=== PATIENT | male | born 1955 | race Caucasian/White ===

== ENCOUNTER 2020-07-23 22:12 | Emergency (ER) | payer MEDICARE ==
[2020-07-23 22:17] VITALS: BP 148/82; PULSE 88; RESP 18; TEMP 98.6
[2020-07-23] MEDS ORDERED: ACET/COD 300 MG/30 MG STARTER PACK 6 TAB BTL PO STA (22:51)
[2020-07-23] MEDS ORDERED: AMOXIC-POT CLAV 875MG STARTER PACK 2 TAB BTL PO STA (22:51)
--- NOTE | 2020-07-23 22:54 | ED ---
ENT HPI - General Chief complaint: Dental/Oral Stated complaint: Dental Pain Time Seen by Provider: 07/23/20 22:27 Source: patient Mode of arrival: ambulatory Limitations: no limitations - History of Present Illness Initial comments: 64-year-old male presented for chief complaint of left lower jaw pain. Patient states that he has multiple bad teeth he states the last tooth that he still has a the left lower aspect of his jaw is tender and has been hurting for past 5 days, today he developed swelling of the left side of face, denies neck swelling. Swelling below the tongue, difficulty breathing or swallowing. Denies DM. Admits to chilld, denies fevers or rash. Denies additional complaints. Patient appears well and nontoxic on arrival he states is a 9:00 appointment with his dentist in the morning. Patient is not currently on any antibiotics. - Related Data Home Medications Medication Instructions Recorded Confirmed Aspirin 81 mg PO DAILY 05/17/14 05/18/14 Atorvastatin [Lipitor] 80 mg PO DAILY 05/17/14 05/18/14 Clopidogrel [Plavix] 75 mg PO DAILY 05/17/14 05/17/14 Enalapril [Vasotec] 5 mg PO DAILY 05/17/14 05/17/14 Ibuprofen [Motrin] 800 mg PO BID 05/17/14 05/17/14 Metoprolol Tartrate [Lopressor] 25 mg PO DAILY 05/17/14 05/17/14 Previous Rx's Medication Instructions Recorded Amoxicillin/Potassium Clav 1 tab PO Q12HR 7 Days #14 tab 07/23/20 [Augmentin 875-125 Tablet] Allergies Allergy/AdvReac Type Severity Reaction Status Date / Time No Known Allergies Allergy Verified 07/23/20 22:17 Review of Systems ROS Statement: Those systems with pertinent positive or pertinent negative responses have been documented in the HPI. ROS Other: All systems not noted in ROS Statement are negative. Past Medical History Past Medical History: GERD/Reflux, Myocardial Infarction (DE), Rheumatoid Arthritis (RA) Additional Past Medical History / Comment(s): gall stones, Hx hypoglycemia Last Myocardial Infarction Date:: 11/11/2013 History of Any Multi-Drug Resistant Organisms: None Reported Past Surgical History: Heart Catheterization With Stent Past Anesthesia/Blood Transfusion Reactions: No Reported Reaction Additional Past Anesthesia/Blood Transfusion Reaction / Comment(s): never had anesthesia Date of Last Stent Placement:: 11/11/2013 Past Psychological History: No Psychological Hx Reported Past Alcohol Use History: None Reported Past Drug Use History: None Reported - Past Family History Mother Family Medical History: Cancer Sister(s) Family Medical History: Cancer Brother(s) Family Medical History: Cancer General Exam - General Exam Comments Initial Comments: General: The patient is awake and alert, in no distress, and does not appear acutely ill. Eye: Pupils are equal, round and reactive to light, extra-ocular movements are intact. No nystagmus. There is normal conjunctiva bilaterally. No signs of icterus. Ears, nose, mouth and throat: There are moist mucous membranes and no oral lesions. Tooth #20 tender to touch, apppear carious, adjacent gingiva induration is not. Fluctuant. No swelling below the tongue or below the angle of the mandible. Uvula midline no stridor no tripoding no drooling Neck: The neck is supple, there is no tenderness or JVD. Musculoskeletal: Normal ROM, no tenderness. Strength 5/5. Sensation intact. Pulses equal bilaterally 2+. Neurological: A&O x 3. CN II-XII intact, There are no obvious motor or sensory deficits. Coordination appears grossly intact. Speech is normal. Skin: Skin is warm and dry and no rashes or lesions are noted. Psychiatric: Cooperative, appropriate mood & affect, normal judgment. Limitations: no limitations Course Vital Signs 07/23/20 22:12 Temperature 98.6 F Pulse Rate 88 Respiratory 18 Rate Blood Pressure 148/82 O2 Sat by Pulse 98 Oximetry Medical Decision Making - Medical Decision Making 64yo male presenting for cc of dental pain. suspect abscess, periapcal suspected. Abx initiated. No signs at this time of ludwigs angina. patient is to f/u tomorrow as scheduled and return if symptoms worsen/develop swelling of neck or below tongue, difficutly brathing or fevers. Patient verbalized understanding and was discharged appearing well. Discussed case with Tasia Thompson Disposition Clinical Impression: Pain, dental, Dental abscess Disposition: HOME SELF-CARE Condition: Good Instructions (If sedation given, give patient instructions): Dental Abscess (ED) Additional Instructions: Please use medication as discussed. Please follow-up with dentist at 9AM tomorrow as scheduled any worsening between now and then please return to the ER immediately. Please return to emergency room if the symptoms increase or worsen or for any other concerns. Prescriptions: Amoxicillin/Potassium Clav [Augmentin 875-125 Tablet] 1 tab PO Q12HR 7 Days #14 tab Is patient prescribed a controlled substance at d/c from ED?: No Referrals: Kristine Su DO [Primary Care Provider] - 1-2 days Time of Disposition: 22:54
== END 2020-07-23 23:14 | disposition home or self-care (01) ==
LOC: EC 22:12
DX: K04.7 Periapical abscess without sinus (principal); I25.2 Old myocardial infarction; M06.9 Rheumatoid arthritis, unspecified; Z79.02 Long term (current) use of antithrombotics/antiplatelets; Z79.82 Long term (current) use of aspirin; Z79.899 Other long term (current) drug therapy; Z95.5 Presence of coronary angioplasty implant and graft
CPT/HCPCS: 99282

== ENCOUNTER 2024-02-08 07:18 | Day surgery (SDC) | payer MEDICARE ==
[2024-02-05 11:13] VITALS: BMI 21.4
[~2024-02-08 07:18] MED LIST: ALPRAZolam 0.25 MG TAB PO PRN; ALPRAZolam 0.5 MG TAB PO PRN; HEPARIN SODIUM,PORCINE (1 ML) 2,500 UNIT in SODIUM CHLORIDE 0.9% 250 ML IRRIGATION PRN; HEPARIN SODIUM,PORCINE 10,000 UNIT in SODIUM CHLORIDE 0.9% 1,000 ML IRRIGATION PRN; NITROGLYCERIN SL TABS 0.4 MG TAB SUBLINGUAL PRN
[2024-02-08] MEDS: ASPIRIN 325 MG TAB PO STA (07:45)
[2024-02-08] MEDS: SODIUM CHLORIDE 0.9% 1,000 ML in EMPTY BAG 1 BAG IV SCH (07:46)
[2024-02-08] MEDS: SODIUM CHLORIDE 0.9% 1,000 ML IV ONE (07:46)
[2024-02-08 08:02] LABS: Basophils # (A) 0.1 k/uL (0-0.2); Basophils % (A) 1 %; Eosinophils # (A) 0.4 k/uL (0-0.7); Eosinophils % (A) 4 %; HCT 49.4 % (39.0-53.0); HGB 16.3 gm/dL (13.0-17.5); Lymphocytes # (A) 2.5 k/uL (1.0-4.8); Lymphocytes % (A) 26 %; MCH 30.3 pg (25.0-35.0); MCHC 33.1 g/dL (31.0-37.0); MCV 91.6 fL (80.0-100.0); Mean Platelet Volume 8.9; Monocytes # (A) 0.4 k/uL (0-1.0); Monocytes % (A) 4 %; Neutrophils # (A) 6.1 k/uL (1.3-7.7); Neutrophils % (A) 63 %; Platelet Count 224 k/uL (150-450); RBC 5.39 m/uL (4.30-5.90); RDW 13.3 % (11.5-15.5); WBC 9.7 k/uL (3.8-10.6)
[2024-02-08 08:13] VITALS: RESP 16; TEMP 98.4
[2024-02-08 08:37] LABS: African American GFR (CKD) >90 (>60 ml/min/1.73 sqM); Anion Gap 9 mmol/L; Blood Urea Nitrogen 16 mg/dL (9-20); Calcium 9.1 mg/dL (8.4-10.2); Carbon Dioxide 22 mmol/L (22-30); Chloride 110 mmol/L (98-107); Glucose 100 mg/dL (74-99); Non-African American GFR(CKD) 90 (>60 ml/min/1.73 sqM); Sodium 141 mmol/L (137-145)
[2024-02-08 08:58] LABS: Potassium 5.1 mmol/L (3.5-5.1)
[2024-02-08] MEDS ORDERED: HEPARIN SODIUM 1,000 UN/ML (10ML VL) ONE (09:56)
[2024-02-08] MEDS ORDERED: VERAPAMIL 2.5 MG/ML 2 ML AMP ONE (09:56)
[2024-02-08] MEDS ORDERED: LIDOCAINE 1% INJ 10MG/ML (20 ML MDV) ONE (09:56)
[2024-02-08] MEDS: MIDAZOLAM 2 MG/2 ML VIAL IVP ONE (10:28)
[2024-02-08] MEDS: LIDOCAINE 1% INJ 10MG/ML (20 ML MDV) SQ ONE (10:28)
[2024-02-08] MEDS: VERAPAMIL SYRINGE (5 MG/10 ML) INTRAARTER ONE (10:29)
[2024-02-08] MEDS ORDERED: fentaNYL (PF) 50 MCG/ML 2 ML AMP ONE (10:32)
[2024-02-08] MEDS: HEPARIN SODIUM 1,000 UN/ML (10ML VL) IV ONE (10:32)
[2024-02-08] MEDS: fentaNYL (PF) 50 MCG/ML 2 ML AMP IVP ONE (10:33)
[2024-02-08] MEDS: IOPAMIDOL-370 100ML BTL INJ ONE (10:37)
[2024-02-08] MEDS ORDERED: RX INFO: IV CONTRAST WAS GIVEN 1 EACH MISC MISCELLANE PRN (10:44)
[2024-02-08] MEDS ORDERED: SODIUM CHLORIDE 0.9% 1,000 ML IV SCH (10:45)
--- NOTE | 2024-02-08 10:48 | P.PCN ---
Date of Procedure: 02/08/24 Operative Findings: CARDIAC CATHETERIZATION PERFORMING PHYSICIAN: Marcus Henry MD, NADEENVI PROCEDURE PERFORMED: 1. Selective right and left coronary angiogram 2. Left heart catheterization 3. Ultrasound-guided access of the right radial artery INDICATION: Chest discomfort in this 68-year-old gentleman who underwent myocardial perfusion imaging and that showed an inferior ischemia and the patient is known to have CAD was prior stenting of the RCA COMPLICATION: None APPROACH: Right radial artery LEVEL OF SEDATION: Moderate with a sedation length of 12 minutes PROCEDURE DESCRIPTION: After obtaining an informed consent, the patient was brought to cardiac labor union business representative. Local anesthesia was performed using lidocaine subcutaneously. The right radial artery was cannulated using Seldinger technique, the guidewire passed easily, following that we advanced a 5-Namibian sheath dilator assembly, the wire and dilator were removed and sheath was flushed. Following that, 2 mg of verapamil along with 3000 unit heparin were given. Selective right and left coronary angiogram using a 6-Namibian JR4 and JL 3.5 catheters. Following that we did left heart catheterization using 6-Namibian JR4. The procedure was completed there was no complication. SELECTIVE CORONARY ANGIOGRAM: The right coronary artery: Large caliber vessel and dominant vessel was patent stent in the mid RCA and mild disease in the proximal RCA Left main: Is angiographically normal The left circumflex: Large caliber vessel nondominant vessel. The circumflex has mild disease only. Gives rises into the first and second obtuse marginal branches and both appeared to be normal The left anterior descending artery: Large caliber vessel was mild disease only. The LAD gives rises into multiple diagonal branches HEMODYNAMICS: The LVEDP was 12-15 mmHg was no significant across the aortic valve CONCLUSION: 1. Patent stent in the mid RCA 2. Normal left-sided filling pressure POSTPROCEDURE MANAGEMENT: Medical treatment CARDIAC CATHETERIZATION PERFORMING PHYSICIAN: Marcus Henry MD, NADEENVI PROCEDURE PERFORMED: 1. Selective right and left coronary angiogram 2. Left heart catheterization 3. Ultrasound-guided access of the right radial artery INDICATION: [] COMPLICATION: None APPROACH: Right radial artery LEVEL OF SEDATION: Moderate with a sedation length of [] minutes PROCEDURE DESCRIPTION: After obtaining an informed consent, the patient was brought to cardiac labor union business representative. Local anesthesia was performed using lidocaine subcutaneously. The right radial artery was cannulated using micropuncture technique under ultrasound guidance and the micropuncture wire passed easily then placed a 6-Namibian sheath over the wire. Subsequently the sheath was flushed and secured. Following that, 2 mg of verapamil along with 5000 unit heparin were given. Selective right and left coronary angiogram using a 6-Namibian JR4 and JL 3.5 catheters. Following that we did left heart catheterization using 6-Namibian pigtail catheter. The procedure was completed there was no complication. SELECTIVE CORONARY ANGIOGRAM: The right coronary artery: [] Left main: [] The left circumflex: [] The left anterior descending artery: [] HEMODYNAMICS: [] CONCLUSION: 1. [] 2. [] POSTPROCEDURE MANAGEMENT: []
[2024-02-08 18:25] VITALS: BP 121/60; PULSE 62
== END 2024-02-08 15:17 | disposition home or self-care (01) ==
LOC: CATHCVL 07:18
PROVIDERS: ATTEND Internal Medicine Interventional Cardiology
DX: I25.10 Atherosclerotic heart disease of native coronary artery without angina pectoris (principal); I10 Essential (primary) hypertension; E78.5 Hyperlipidemia, unspecified; I25.5 Ischemic cardiomyopathy; Z95.5 Presence of coronary angioplasty implant and graft; Z82.49 Family history of ischemic heart disease and other diseases of the circulatory system; Z79.82 Long term (current) use of aspirin; Z79.899 Other long term (current) drug therapy
CPT/HCPCS: 93458; 76937; 80048; 85025; C1894; J2250; J2001; J3010; J1644; Q9967